=== PATIENT | male | born 1940 | race Caucasian/White ===

== ENCOUNTER 2017-02-05 19:04 | Inpatient (IN) | payer MEDICARE, MEDICAID ==
--- NOTE | 2017-02-05 19:48 | C.PDOC ---
History Of Present Illness Patient, with a past medical history of hypertension, presents to the ED complaining of dizziness that began 5 days ago. Patient states he felt better for a short time, but then symptoms became worse. Patient also notes unsteady walking. He denies fever, chills, chest pain, nausea, vomiting, or vision change. Time Seen by Provider: 02/05/17 19:46 Chief Complaint (Nursing): Dizziness/Lightheaded History Per: Patient History/Exam Limitations: no limitations Onset/Duration Of Symptoms: Days (5) Current Symptoms Are (Timing): Still Present Fall Associated With With Symptoms: No Severity: Mild Pain Scale Rating Of: 3 Recent travel outside of the [place]: No Additional History Per: Patient Past Medical History Reviewed: Historical Data, Nursing Documentation, Vital Signs Vital Signs: Last Vital Signs Temp 98.1 F 02/05/17 19:20 Pulse 71 02/05/17 19:20 Resp 16 02/05/17 19:20 BP 136/66 02/05/17 19:20 Pulse Ox 97 02/05/17 20:31 - Medical History PMH: HTN Family History: States: Unknown Family Hx - Social History Hx Alcohol Use: No Hx Substance Use: No - Immunization History Hx Influenza Vaccination: Yes Review Of Systems Constitutional: Negative for: Fever, Chills Eyes: Negative for: Vision Change Cardiovascular: Negative for: Chest Pain Respiratory: Negative for: Shortness of Breath Gastrointestinal: Negative for: Nausea, Vomiting Genitourinary: Negative for: Dysuria Musculoskeletal: Negative for: Back Pain Skin: Negative for: Rash, Lesions, Jaundice, Bruising Neurological: Positive for: Dizziness Psych: Negative for: Anxiety Physical Exam - Physical Exam Appears: Non-toxic, No Acute Distress Skin: Warm, Dry Head: Atraumatic, Normacephalic Eye(s): bilateral: Normal Inspection Oral Mucosa: Moist Neck: Supple Chest: Symmetrical Cardiovascular: Rhythm Regular Respiratory: No Rales, Rhonchi (scattered), No Wheezing Gastrointestinal/Abdominal: Soft, No Tenderness Back: No CVA Tenderness Extremity: Normal ROM Extremity: Bilateral: Atraumatic, Normal Color And Temperature Neurological/Psych: Oriented x3, Normal Speech, Normal Cognition, No Other ( Romberb, nystagmus) Gait: Steady ED Course And Treatment - Laboratory Results Result Diagrams: 02/05/17 20:06 02/05/17 20:06 ECG: Interpreted By Me, Viewed By Me ECG Rhythm: Sinus Rhythm (71), Nonspecific Changes O2 Sat by Pulse Oximetry: 97 Pulse Ox Interpretation: Normal - CT Scan/US Head CT Other Rad Studies (CT/US): Read By Radiologist (Kimberlee Melgar MD), Radiology Report Reviewed CT/US Interpretation: EXAM: CT Head Without Intravenous Contrast. CLINICAL HISTORY: 76 years old, male; Signs and symptoms; Dizziness; Additional info: R/ O bleed. TECHNIQUE: Axial computed tomography images of the head/brain without intravenous contrast. This CT exam. was performed using one or more of the following dose reduction techniques: automated exposure. control, adjustment of the mA and/or kV according to patient size, and/or use of iterative. reconstruction technique. EXAM DATE/TIME: Exam ordered 02/05/2017 7: 53 PM. COMPARISON: No relevant prior studies available. FINDINGS: Brain: Calcification is noted in the basal ganglia bilaterally. 2 subcentimeter focal low density areas. are noted within the left basal ganglia. One is located in the thalamus and one in the lentiform. nucleus. Both suggest lacunar infarcts. No hemorrhage. No significant white matter disease. No. edema. Ventricles: Unremarkable. No ventriculomegaly. Bones/joints: Unremarkable. No acute fracture. Soft tissues: Unremarkable. Sinuses: Mucosal thickening is noted in the left maxillary sinus and the left ethmoid air cells. Mastoid air cells: Unremarkable as visualized. No mastoid effusion. IMPRESSION: 1. No acute findings. 2. Chronic Lacunar infarcts in the left basal ganglia. 3. Mucosal thickening in the left maxillary sinus and left ethmoid air cells. Progress Note: Plan: Head CT, EKG, Labs, Chest x-ray Disposition Discussed With : Rupesh Ortega Comment: accepted the pt on his service and took over the care at 9:57PM Doctor Will See Patient In The: Hospital Counseled Patient/Family Regarding: Studies Performed, Diagnosis - Disposition Disposition: HOSPITALIZED Disposition Time: 19:47 Condition: FAIR - POA Present On Arrival: Poor Glycemic Control - Clinical Impression Clinical Impression: Dizziness, Hyperglycemia - Scribe Statement The provider has reviewed the documentation as recorded by the Haydee Ortega Provider Attestation: All medical record entries made by the Scribdami were at my direction and personally dictated by me. I have reviewed the chart and agree that the record accurately reflects my personal performance of the history, physical exam, medical decision making, and the department course for this patient. I have also personally directed, reviewed, and agree with the discharge instructions and disposition. Decision To Admit - Pt Status Changed To: Hospital Disposition Of: Inpatient - Admit Certification Admit to Inpatient:: After my assessment, the patient will require hospitalization for at least two midnights. This is because of the severity of symptoms shown, intensity of services needed, and/or the medical risk in this patient being treated as an outpatient. - InPatient: Physician Admission Certification: I certify that this patient requires 2 or more midnights of care for the following reason:: After my assessment, the patient will require hospitalization for at least two midnights. This is because of the severity of symptoms shown, intensity of services needed, and/or the medical risk in this patient being treated as an outpatient. - . Bed Request Type: Telemetry Admitting Physician: Rupesh Ortega Patient Diagnosis: Dizziness, Hyperglycemia
[2017-02-05 20:09] LABS: BASO % 0.4 % (0.0-2.0); EOS # 0.1 K/uL (0.0-0.7); EOS % 1.7 % (0.0-4.0); HEMATOCRIT 38.8 % (35.0-51.0); LYMPH # 2.9 K/uL (1.0-4.3); LYMPH % 46.3 % (20.0-40.0); MEAN CELL VOLUME 88.4 fL (80.0-94.0); MEAN CORPUSCULAR HEMOGLOBIN 29.2 pg (27.0-31.0); MEAN PLATELET VOLUME 6.7 fL (7.2-11.7); MONO # 0.8 K/uL (0.0-0.8); MONO % 13.1 % (0.0-10.0); RED CELL DISTRIBUTION WIDTH 12.8 % (11.5-14.5); WHITE BLOOD COUNT 6.2 K/uL (4.8-10.8)
[2017-02-05 20:20] LABS: CHLORIDE 99 mmol/L (98-107); POTASSIUM 4.7 mmol/L (3.6-5.2); SODIUM 140 mmol/L (132-148)
[2017-02-05 20:22] LABS: GFR AFRICAN-AMERICAN > 60; INR 1.1
[2017-02-05 20:23] LABS: ALB/GLOB RATIO 1.1 (1.0-2.1); ALKALINE PHOSPHATASE 75 U/L (38-126); ALT/SGPT 22 U/L (21-72); AST/SGOT 16 U/L (17-59); BILIRUBIN,TOTAL 0.3 mg/dL (0.2-1.3); BLOOD UREA NITROGEN 12 mg/dL (9-20); CARBON DIOXIDE 30 mmol/L (22-30); GLUCOSE,RANDOM 122 mg/dL (75-110); TOTAL PROTEIN 7.1 g/dL (6.3-8.3)
[2017-02-05 20:24] LABS: CALCIUM 8.6 mg/dl (8.6-10.4)
--- NOTE | 2017-02-05 20:28 | CT ---
EXAM: CT Head Without Intravenous Contrast CLINICAL HISTORY: 76 years old, male; Signs and symptoms; Dizziness; Additional info: R/O bleed TECHNIQUE: Axial computed tomography images of the head/brain without intravenous contrast. This CT exam was performed using one or more of the following dose reduction techniques: automated exposure control, adjustment of the mA and/or kV according to patient size, and/or use of iterative reconstruction technique. EXAM DATE/TIME: Exam ordered 02/05/2017 7:53 PM COMPARISON: No relevant prior studies available. FINDINGS: Brain: Calcification is noted in the basal ganglia bilaterally. 2 subcentimeter focal low density areas are noted within the left basal ganglia. One is located in the thalamus and one in the lentiform nucleus. Both suggest lacunar infarcts. No hemorrhage. No significant white matter disease. No edema. Ventricles: Unremarkable. No ventriculomegaly. Bones/joints: Unremarkable. No acute fracture. Soft tissues: Unremarkable. Sinuses: Mucosal thickening is noted in the left maxillary sinus and the left ethmoid air cells. Mastoid air cells: Unremarkable as visualized. No mastoid effusion. IMPRESSION: 1. No acute findings. 2. Chronic Lacunar infarcts in the left basal ganglia 3. Mucosal thickening in the left maxillary sinus and left ethmoid air cells.
[2017-02-05 20:37] LABS: URINE BILIRUBIN NEGATIVE (NEGATIVE); URINE BLOOD NEGATIVE (NEGATIVE); URINE COLOR Straw (YELLOW); URINE GLUCOSE (UA) NORMAL (Normal); URINE KETONE NEGATIVE (NEGATIVE); URINE LEUKOCYTE ESTERASE NEG Leu/uL (Negative); URINE PROTEIN NEGATIVE (NEGATIVE); URINE UROBILINOGEN NORMAL mg/dL (0.2-1.0); WBC URINE < 1 /hpf (0-5)
--- NOTE | 2017-02-06 09:29 | RAD ---
PROCEDURE: CHEST RADIOGRAPH, 1 VIEW HISTORY: Shortness of breath COMPARISON: None available. FINDINGS: LUNGS: Mild to moderate venous congestion. PLEURA: No pneumothorax or pleural fluid seen. CARDIOVASCULAR: Normal. OSSEOUS STRUCTURES: No significant abnormalities. VISUALIZED UPPER ABDOMEN: Normal. OTHER FINDINGS: None. IMPRESSION: Mild to moderate venous congestion.
[2017-02-06] MEDS: Enoxaparin 40 mg Syringe SC SCH (09:54)
[2017-02-06] MEDS: Pantoprazole 40 mg EC Tab PO SCH (09:54)
--- NOTE | 2017-02-06 13:59 | MRI ---
PROCEDURE: MRI BRAIN WITHOUT CONTRAST HISTORY: dizziness COMPARISON: None. TECHNIQUE: Multiplanar, multisequence MR images of the brain were obtained without intravenous contrast enhancement. FINDINGS: HEMORRHAGE: None DWI: No evidence of an acute or early subacute infarction. BRAIN PARENCHYMA: No mass effect or edema. No atrophy or chronic microvascular ischemic changes. Roughly 1 centimeter perivascular space in the left basal ganglia. Mild atrophy. VENTRICLES: Unremarkable. No hydrocephalus. CRANIUM: Unremarkable. ORBITS: Grossly unremarkable. PARANASAL SINUSES/MASTOIDS: Clear VASCULAR SYSTEM: Skull base flow voids intact. OTHER FINDINGS: None. IMPRESSION: Mild atrophy.
--- NOTE | 2017-02-06 14:41 | CP.PCM.PN ---
Subjective - Date & Time of Evaluation Date of Evaluation: 02/06/17 Time of Evaluation: 14:20 - Subjective Subjective: PGY2 Medicine Note - Dr. Palma Ortega's service: Patient seen and examined at bedside this AM. Patient reports 5 days of dizziness and gait instability. Patient denies fever, chills, chest pain, SOB. Objective - Vital Signs/Intake and Output Vital Signs (last 24 hours): Temp Pulse Resp BP Pulse Ox 98.4 F 68 18 116/66 96 02/06/17 07:00 02/06/17 07:08 02/06/17 07:00 02/06/17 07:00 02/06/17 07:00 - Medications Medications: Current Medications Amlodipine Besylate (Norvasc) 5 mg PO DAILY [facility] Last Admin: 02/06/17 09:54 Dose: 5 mg Aspirin (Ecotrin) 81 mg PO DAILY [facility] Enoxaparin Sodium (Lovenox) 40 mg SC DAILY [facility] Last Admin: 02/06/17 09:54 Dose: 40 mg Meclizine HCl (Antivert) 25 mg PO Q8 [facility] Last Admin: 02/06/17 13:41 Dose: 25 mg Pantoprazole Sodium (Protonix Ec Tab) 40 mg PO DAILY [facility] Last Admin: 02/06/17 09:54 Dose: 40 mg - Labs Labs: PT 11.8 SECONDS (9.7-12.2) 02/05/17 20:06 INR 1.1 02/05/17 20:06 APTT 28 SECONDS (21-34) 02/05/17 20:06 - Constitutional Appears: Non-toxic, No Acute Distress - Head Exam Head Exam: NORMAL INSPECTION - Eye Exam Eye Exam: EOMI - ENT Exam ENT Exam: Mucous Membranes Moist - Respiratory Exam Respiratory Exam: Clear to Ausculation Bilateral, NORMAL BREATHING PATTERN. absent: Rales, Rhonchi, Wheezes - Cardiovascular Exam Cardiovascular Exam: REGULAR RHYTHM, +S1, +S2. absent: Gallop, Rubs - GI/Abdominal Exam GI & Abdominal Exam: Soft, Normal Bowel Sounds - Neurological Exam Neurological Exam: Alert, Awake - Psychiatric Exam Psychiatric exam: Normal Affect, Normal Mood - Skin Skin Exam: Normal Color, Warm Assessment and Plan - Assessment and Plan (Free Text) Assessment: Dizziness Head CT - No acute findings; chronic lacunar infarcts in left basal ganglia; mucosal thickening in left maxillary sinus and left ethmoid air cells Brain MRI - mild atrophy EKG - NSR at 71 bpm F/U ECHO and carotid US reports F/U vitamin D, B12, folate, RPR Meclizine 25mg PO Q8 ASA 81mg PO daily Neurology consult - Dr. Trini Hermosillo - f/u recs HTN Norvasc 5mg PO daily Prophylaxis Protonix 40mg PO daily Lovenox 40mg SC daily Management per Dr. Palma Ortega
--- NOTE | 2017-02-06 15:25 | VASCLAB ---
PROCEDURE: HISTORY: dizziness COMPARISON: None available. TECHNIQUE: Grayscale and duplex Doppler evaluation of the cervical carotid and vertebral arteries were performed. The common carotid, carotid bifurcations and cervical Internal Carotid Artery (ICA) and proximal External Carotid Artery (ECA) were evaluated. The vertebral arteries were evaluated for gross patency and flow direction. Report prepared by Sunny Cordon, BS, RVT FINDINGS: RIGHT CAROTID ARTERIES: 1. Common Carotid Artery: No significant focal plaque formation of the right common carotid artery. Maximum Peak Systolic velocity: 120 cm/sec: End-diastolic velocity 19 cm/sec. 2. Carotid Bifurcation: plaque formation. Maximum Peak Systolic velocity: 90 cm/sec: End-diastolic velocity 24 cm/sec. 3. Internal Carotid Artery: Plaque description: 3.1. Proximal Segment: Peak systolic velocity 99 cm/sec: End-diastolic velocity 30 cm/sec - % stenosis 0-15% 3.2. Middle Segment: Peak systolic velocity 117 cm/sec: End-diastolic velocity 28 cm/sec - % stenosis 0-15% 3.3. Distal Segment: Peak systolic velocity 90 cm/sec: End-diastolic velocity 24 cm/sec - % stenosis 0-15% 4. External Carotid Artery: No significant focal plaque formation. Peak systolic velocity 111 cm/sec 5. ICA/CCA Ratio: 1.0 LEFT CAROTID ARTERIES: 1. Common Carotid Artery: No significant focal plaque formation of the left common carotid artery. Maximum Peak Systolic velocity: 117 cm/sec: End-diastolic velocity 17 cm/sec. 2. Carotid Bifurcation: plaque formation. Maximum Peak Systolic velocity: 112 cm/sec: End-diastolic velocity 20 cm/sec. 3. Internal Carotid Artery: Plaque description: 3.1. Proximal Segment: Peak systolic velocity 95 cm/sec: End-diastolic velocity 27 cm/sec - % stenosis 0-15% 3.2. Middle Segment: Peak systolic velocity 49 cm/sec: End-diastolic velocity 13 cm/sec - % stenosis 0-15% 3.3. Distal Segment: Peak systolic velocity 117 cm/sec: End-diastolic velocity 32 cm/sec - % stenosis 0-15% 4. External Carotid Artery: No significant focal plaque formation. Peak systolic velocity 109 cm/sec 5. ICA/CCA Ratio: 1.0 VERTEBRAL ARTERIES: 1. Right Vertebral Artery: The right vertebral artery flow direction is antegrade. 2. Left Vertebral Artery: The left vertebral artery flow direction is antegrade. OTHER FINDINGS: 1. Right Brachial Blood pressure: 128 mmHg. 2. Left Brachial Blood pressure: 124 mmHg. IMPRESSION: RIGHT: Duplex scan does not suggest hemodynamically significant stenosis of the right extracranial carotid arteries. LEFT: Duplex scan does not suggest hemodynamically significant stenosis of the left extracranial carotid arteries.
[2017-02-06 15:51] VITALS: RESP 20
--- NOTE | 2017-02-06 18:31 | CP.PCM.HP ---
Past Patient History - Past Medical History & Family History Past Medical History?: Yes - Past Social History Smoking Status: Never Smoked - CARDIAC Hx Cardiac Disorders: Yes Hx Hypertension: Yes - PULMONARY Hx Respiratory Disorders: No - NEUROLOGICAL Hx Neurological Disorder: No - HEENT Hx HEENT Problems: No - RENAL Hx Chronic Kidney Disease: No - ENDOCRINE/METABOLIC Hx Diabetes Mellitus Type 1: Yes - HEMATOLOGICAL/ONCOLOGICAL Hx Blood Disorders: No - INTEGUMENTARY Hx Dermatological Problems: No - MUSCULOSKELETAL/RHEUMATOLOGICAL Hx Falls: No - GASTROINTESTINAL Hx Gastrointestinal Disorders: No - GENITOURINARY/GYNECOLOGICAL Hx Genitourinary Disorders: No - PSYCHIATRIC Hx Substance Use: No - SURGICAL HISTORY Hx Surgeries: No Other/Comment: denies any further history - ANESTHESIA Hx Anesthesia: No Hx Anesthesia Reactions: No Hx Malignant Hyperthermia: No Has any member of the family had a problem w/ anesthesia?: No Meds Allergies/Adverse Reactions: Allergies Allergy/AdvReac Type Severity Reaction Status Date / Time No Known Allergies Allergy Verified 02/05/17 19:26 Results - Vital Signs Recent Vital Signs: Last Vital Signs Temp 98.3 F 02/06/17 15:00 Pulse 72 02/06/17 16:38 Resp 20 02/06/17 15:00 BP 122/70 02/06/17 15:00 Pulse Ox 96 02/06/17 16:38 - Labs Result Diagrams: 02/05/17 20:06 02/05/17 20:06 Labs: Laboratory Results - last 24 hr 02/06/17 02/06/17 02/06/17 06:11 14:12 14:12 POC Glucose (mg/dL) 119 H Vitamin B12 400 25-OH Vitamin D Total < 12.8 L RPR 02/06/17 02/06/17 14:12 16:16 POC Glucose (mg/dL) 120 H Vitamin B12 25-OH Vitamin D Total RPR Nonreactive
--- NOTE | 2017-02-06 20:08 | CP.PCM.CON ---
History of Present Illness - History of Present Illness History of Present Illness: Mr. Tolliver is a 76-year-old man with a past medical history of hypertension, who states that he has been feeling "dizzy" for the past week. He states that the dizziness feels like the ground is moving for him and he also has trouble with ambulating during the dizzy periods. He currently is not feeling these symptoms and had no complaints when I examined him. Review of Systems - Review of Systems All systems: reviewed and no additional remarkable complaints except Past Patient History - Past Medical History & Family History Past Medical History?: Yes - Past Social History Smoking Status: Never Smoked - CARDIAC Hx Cardiac Disorders: Yes Hx Hypertension: Yes - PULMONARY Hx Respiratory Disorders: No - NEUROLOGICAL Hx Neurological Disorder: No - HEENT Hx HEENT Problems: No - RENAL Hx Chronic Kidney Disease: No - ENDOCRINE/METABOLIC Hx Diabetes Mellitus Type 1: Yes - HEMATOLOGICAL/ONCOLOGICAL Hx Blood Disorders: No - INTEGUMENTARY Hx Dermatological Problems: No - MUSCULOSKELETAL/RHEUMATOLOGICAL Hx Falls: No - GASTROINTESTINAL Hx Gastrointestinal Disorders: No - GENITOURINARY/GYNECOLOGICAL Hx Genitourinary Disorders: No - PSYCHIATRIC Hx Substance Use: No - SURGICAL HISTORY Hx Surgeries: No Other/Comment: denies any further history - ANESTHESIA Hx Anesthesia: No Hx Anesthesia Reactions: No Hx Malignant Hyperthermia: No Has any member of the family had a problem w/ anesthesia?: No Meds Allergies/Adverse Reactions: Allergies Allergy/AdvReac Type Severity Reaction Status Date / Time No Known Allergies Allergy Verified 02/05/17 19:26 - Medications Medications: Current Medications Amlodipine Besylate (Norvasc) 5 mg PO DAILY [facility] Last Admin: 02/06/17 09:54 Dose: 5 mg Aspirin (Ecotrin) 81 mg PO DAILY [facility] Last Admin: 02/06/17 14:57 Dose: 81 mg Enoxaparin Sodium (Lovenox) 40 mg SC DAILY [facility] Last Admin: 02/06/17 09:54 Dose: 40 mg Meclizine HCl (Antivert) 25 mg PO Q8 [facility] Last Admin: 02/06/17 13:41 Dose: 25 mg Pantoprazole Sodium (Protonix Ec Tab) 40 mg PO DAILY [facility] Last Admin: 02/06/17 09:54 Dose: 40 mg Physical Exam - Constitutional Appears: Well - Head Exam Head Exam: ATRAUMATIC, NORMAL INSPECTION, NORMOCEPHALIC - Eye Exam Eye Exam: EOMI, Normal appearance, PERRL - ENT Exam ENT Exam: Mucous Membranes Moist, Normal Exam - Neck Exam Neck exam: Positive for: Normal Inspection - Respiratory Exam Respiratory Exam: Clear to Auscultation Bilateral, NORMAL BREATHING PATTERN - Cardiovascular Exam Cardiovascular Exam: REGULAR RHYTHM, +S1, +S2 - GI/Abdominal Exam GI & Abdominal Exam: Normal Bowel Sounds, Soft. absent: Tenderness - Rectal Exam Rectal Exam: Deferred - Neurological Exam Neurological exam: Alert, CN II-XII Intact, Normal Gait, Oriented x3, Reflexes Normal Additional comments: gait was wide-based and slow. Romberg was negative. - Expanded Neurological Exam Expanded Patient oriented to: person, place, time Cranial nerves: EOM's Intact: Normal, Facial Sensation: Normal, Gag Reflex: Normal, Nystagmus: Normal Cerebellar Function: Finger to Nose: Normal, Heel to [place]: Normal, Romberg: Normal Upper motor neuron: Babinski Sign: Normal Sensory exam: Lower Extremity Light Touch: Normal, Lower Extremity Pin Prick: Normal, Upper Extremity Light Touch: Normal, Upper Extremity Pin Prick: Normal Neuro motor strength exam: Left Upper Extremity: 5, Right Upper Extremity: 5, Left Lower Extremity: 5, Right Lower Extremity: 5 DTR: Achilles Tendon Left: 2+, Achilles Tendon Right: 2+, Bicep Left: 2+, Bicep Right: 2+, Brachioradialis Left: 2+, Brachioradialis Right: 2+, Patellar Left: 2 +, Patellar Right: 2+, Tricep Left: 2+, Tricep Right: 2+ - Psychiatric Exam Psychiatric exam: Normal Affect, Normal Mood - Skin Skin Exam: Dry, Intact, Normal Color, Warm Results - Vital Signs Recent Vital Signs: Last Vital Signs Temp 98.3 F 02/06/17 15:00 Pulse 72 02/06/17 16:38 Resp 20 02/06/17 15:00 BP 122/70 02/06/17 15:00 Pulse Ox 96 02/06/17 16:38 - Labs Result Diagrams: 02/05/17 20:06 02/05/17 20:06 Labs: Laboratory Results - last 24 hr 02/06/17 02/06/17 02/06/17 06:11 14:12 14:12 POC Glucose (mg/dL) 119 H Vitamin B12 400 25-OH Vitamin D Total < 12.8 L RPR 02/06/17 02/06/17 14:12 16:16 POC Glucose (mg/dL) 120 H Vitamin B12 25-OH Vitamin D Total RPR Nonreactive - Imaging and Cardiology CT scan - head Status: Image reviewed by me, Report reviewed by me (CT head, MRI brain did not demonstrate any acute findings. ) Assessment & Plan (1) Dizziness Assessment and Plan: The patient's intermittent vertigo-like symptoms with gait instability may represent a posterior circulation stenosis that could be intracranial and therefor not evaluated by the carotid doppler. I recommend obtaining a CTA of the head/neck, continue aspirin and antivert. Continue adequate hydration with NS at 100 mL/hr to maintain cerebral perfusion. DVT Px, PT/OT if needed. Status: Acute Priority: Medium
[2017-02-06] MEDS ORDERED: Iohexol 350mg/ml 100 ML ONE (21:02)
[2017-02-06] MEDS: Sodium Chloride 0.9% 1,000 ML IV SCH (21:11)
[2017-02-07] MEDS ORDERED: Ergocalciferol 50,000 Intl Units Cap PO SCH (06:30)
[2017-02-07 07:40] LABS: BASO # 0.1 K/uL (0.0-0.2); BASO % 0.7 % (0.0-2.0); EOS # 0.1 K/uL (0.0-0.7); EOS % 1.4 % (0.0-4.0); HEMATOCRIT 37.1 % (35.0-51.0); LYMPH # 2.8 K/uL (1.0-4.3); LYMPH % 40.2 % (20.0-40.0); MEAN CELL VOLUME 87.7 fL (80.0-94.0); MEAN CORPUSCULAR HEMOGLOBIN 29.5 pg (27.0-31.0); MEAN CORPUSCULAR HGB CONC 33.6 g/dL (33.0-37.0); MONO # 0.6 K/uL (0.0-0.8); MONO % 8.1 % (0.0-10.0); NRBC % 0.1 % (0.0-2.0); RED CELL DISTRIBUTION WIDTH 12.9 % (11.5-14.5); WHITE BLOOD COUNT 7.1 K/uL (4.8-10.8)
[2017-02-07 07:56] LABS: CHLORIDE 101 mmol/L (98-107); POTASSIUM 4.2 mmol/L (3.6-5.2); SODIUM 137 mmol/L (132-148)
[2017-02-07 07:58] LABS: GFR AFRICAN-AMERICAN > 60
[2017-02-07 07:59] LABS: ALB/GLOB RATIO 0.9 (1.0-2.1); ALKALINE PHOSPHATASE 78 U/L (38-126); ALT/SGPT 18 U/L (21-72); AST/SGOT 16 U/L (17-59); BILIRUBIN,TOTAL 0.4 mg/dL (0.2-1.3); BLOOD UREA NITROGEN 11 mg/dL (9-20); CARBON DIOXIDE 28 mmol/L (22-30); GLUCOSE,RANDOM 110 mg/dL (75-110); TOTAL PROTEIN 6.1 g/dL (6.3-8.3)
[2017-02-07 08:00] LABS: CALCIUM 7.7 mg/dl (8.6-10.4)
[2017-02-07] MEDS: Sodium Chloride 0.9% 1,000 ML IV SCH (08:00)
--- NOTE | 2017-02-07 09:58 | CT ---
PROCEDURE: CT Angiography of the neck and brain dated 02/06/2017. HISTORY: Vertigo COMPARISON: Correlation made with carotid Doppler exam 02/06/2017. TECHNIQUE: Contiguous helical/transaxial images of the neck were obtained from the level of the skull-base to the superior mediastinum in the arteriographic phase of enhancement. Coronal and sagittal reformats or also generated. IV contrast dose: 100 cc Omnipaque 350 contrast material. Radiation Dose - DLP: 621.6 mGy-cm FINDINGS: Findings: The visualized common carotid arteries, carotid bifurcations and internal carotid arteries are widely patent without evidence of occlusion or nor significant stenosis. No significant atherosclerotic plaque changes are identified the distal internal carotid arteries including the PE trace common carotid cavernous and supraclinoid segments also widely patent. Some very minimal calcified atherosclerotic plaque seen along both carotid siphons however no significant stenosis. The visualized vertebral arteries are relatively symmetric on in caliber. Basilar artery is patent. The major branches of the [place] and mid to proximal and mid the portions of the middle and posterior cerebral arteries are patent appear relatively symmetric. No evidence of large on aneurysm nor vascular malformation so far as can be seen. Mild chronic periventricular white matter ischemic changes. Mild polypoid like mucosal thickening both maxillary antra. Minor mucosal thickening within not several ethmoid air. Impression: The carotid and vertebral arteries are widely patent without evidence of occlusion or hemodynamically significant stenosis. .
[2017-02-07] MEDS: Enoxaparin 40 mg Syringe SC SCH (10:35)
[2017-02-07] MEDS: Pantoprazole 40 mg EC Tab PO SCH (10:35)
--- NOTE | 2017-02-07 12:14 | CARD ---
APPROVED REPORT EKG Measurement Heart [id number] VT [id number] <Conclusion> Normal sinus rhythm Normal ECG
--- NOTE | 2017-02-07 12:32 | CARD ---
APPROVED REPORT EXAM: Two-dimensional and M-mode echocardiogram with Doppler and color Doppler. Other Information Quality : GoodRhythm : NSR INDICATION Dizziness and Vertigo AMBULATORY DYSFUNCTION RISK FACTORS Hypertension M-Mode DIMENSIONS RVDd2.05 (2.1-3.2cm)Left Atrium (MM)3.51 (2.5-4.0cm) IVSd0.94 (0.7-1.1cm)Aortic Root3.16 (2.2-3.7cm) LVDd4.46 (4.0-5.6cm)Aortic Cusp Exc.1.92 (1.5-2.0cm) PWd0.91 (0.7-1.1cm)FS (%) 44 % LVDs2.51 (2.0-3.8cm)LVEF (%)75 (>50%) Mitral Valve MV E Akyjkmsg06.6cm/sMV A Lzqswshi33.0cm/sE/A ratio1.0 TDI E/Lateral E'0.0E/Medial E'0.0 Tricuspid Valve TR Peak [id number]/sTR Peak Gr.[id number] <Conclusion> normal size la,lv & ra rv. normal lv wall motion,thickness,systolic & diastolic function with lvef of more than 70%. normal aortic,mitral,tv & pv for age. mild tr with normal pulmonary systolic pressures of 32 mm of hg. no pericardial effusion. sclerotic normal size aortic root.
--- NOTE | 2017-02-07 13:13 | CP.PCM.PN ---
Subjective - Date & Time of Evaluation Date of Evaluation: 02/07/17 Time of Evaluation: 07:55 - Subjective Subjective: PGY2 Medicine Note - Dr. Palma Ortega's service: Patient seen and examined at bedside this AM. Patient denies dizziness while in bed. Patient says he has trouble walking and dizziness when standing up. Patient denies fever, chills, chest pain, congestion, SOB, abdominal pain, dysuria. Objective - Vital Signs/Intake and Output Vital Signs (last 24 hours): Temp Pulse Resp BP Pulse Ox 98.1 F 62 20 120/68 95 02/07/17 07:25 02/07/17 12:00 02/07/17 07:25 02/07/17 10:34 02/07/17 07:25 Intake and Output: 02/07/17 02/07/17 06:59 18:59 Intake Total 920 Output Total 525 Balance 395 - Medications Medications: Current Medications Amlodipine Besylate (Norvasc) 5 mg PO DAILY [facility] Last Admin: 02/07/17 10:35 Dose: 5 mg Aspirin (Ecotrin) 81 mg PO DAILY [facility] Last Admin: 02/07/17 10:35 Dose: 81 mg Cyanocobalamin (Vitamin B12 1000 Mcg Tab) 1,000 mcg PO DAILY [facility] Last Admin: 02/07/17 10:35 Dose: 1,000 mcg Enoxaparin Sodium (Lovenox) 40 mg SC DAILY [facility] Last Admin: 02/07/17 10:35 Dose: 40 mg Ergocalciferol (Drisdol 50,000 Intl Units Cap) 1 cap PO Q7D [facility] Last Admin: 02/07/17 07:09 Dose: 1 cap Sodium Chloride (Sodium Chloride 0.9%) 1,000 mls @ 100 mls/hr IV .Q10H [facility] Last Admin: 02/07/17 08:00 Dose: 100 mls/hr Meclizine HCl (Antivert) 25 mg PO Q8 [facility] Last Admin: 02/07/17 05:42 Dose: 25 mg Pantoprazole Sodium (Protonix Ec Tab) 40 mg PO DAILY [facility] Last Admin: 02/07/17 10:35 Dose: 40 mg - Labs Labs: 02/07/17 07:22 02/07/17 07:22 PT 11.8 SECONDS (9.7-12.2) 02/05/17 20:06 INR 1.1 02/05/17 20:06 APTT 28 SECONDS (21-34) 02/05/17 20:06 - Constitutional Appears: Non-toxic, No Acute Distress - Head Exam Head Exam: NORMAL INSPECTION - Eye Exam Eye Exam: EOMI - ENT Exam ENT Exam: Mucous Membranes Moist - Respiratory Exam Respiratory Exam: Clear to Ausculation Bilateral, NORMAL BREATHING PATTERN. absent: Rales, Rhonchi, Wheezes - Cardiovascular Exam Cardiovascular Exam: REGULAR RHYTHM, +S1, +S2. absent: Gallop, Rubs - GI/Abdominal Exam GI & Abdominal Exam: Soft, Normal Bowel Sounds. 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 otherwise normal. (please see full report) RPR negative Vitamin B12 400 Vitamin D <12.5 B12 1000mcg IM once B12 1000mcg PO daily Ergocalciferol 33938H PO Q7D x 6 months Meclizine 25mg PO Q8 ASA 81mg PO daily Neurology consult - Dr. Leon - help appreciated HTN Norvasc 5mg PO daily Prophylaxis Protonix 40mg PO daily Lovenox 40mg SC daily Management per Dr. Palma Ortega
[2017-02-07 15:53] VITALS: BP 133/69; TEMP 97.6; O2SAT 98
[2017-02-07 16:23] VITALS: PULSE 69
--- NOTE | 2017-02-07 17:08 | CP.PCM.PN ---
Subjective - Date & Time of Evaluation Date of Evaluation: 02/07/17 Time of Evaluation: 11:40 - Subjective Subjective: clinically same Objective - Vital Signs/Intake and Output Vital Signs (last 24 hours): Temp Pulse Resp BP Pulse Ox 97.6 F 69 20 133/69 98 02/07/17 15:20 02/07/17 15:30 02/07/17 15:20 02/07/17 15:20 02/07/17 15:20 Intake and Output: 02/07/17 02/07/17 06:59 18:59 Intake Total 920 1200 Output Total 525 Balance 395 1200 - Medications Medications: Current Medications Amlodipine Besylate (Norvasc) 5 mg PO DAILY [facility] Last Admin: 02/07/17 10:35 Dose: 5 mg Aspirin (Ecotrin) 81 mg PO DAILY [facility] Last Admin: 02/07/17 10:35 Dose: 81 mg Cyanocobalamin (Vitamin B12 1000 Mcg Tab) 1,000 mcg PO DAILY [facility] Last Admin: 02/07/17 10:35 Dose: 1,000 mcg Enoxaparin Sodium (Lovenox) 40 mg SC DAILY [facility] Last Admin: 02/07/17 10:35 Dose: 40 mg Ergocalciferol (Drisdol 50,000 Intl Units Cap) 1 cap PO Q7D [facility] Last Admin: 02/07/17 07:09 Dose: 1 cap Sodium Chloride (Sodium Chloride 0.9%) 1,000 mls @ 100 mls/hr IV .Q10H [facility] Last Admin: 02/07/17 08:00 Dose: 100 mls/hr Meclizine HCl (Antivert) 25 mg PO Q8 [facility] Last Admin: 02/07/17 13:22 Dose: 25 mg Pantoprazole Sodium (Protonix Ec Tab) 40 mg PO DAILY [facility] Last Admin: 02/07/17 10:35 Dose: 40 mg - Labs Labs: 02/07/17 07:22 02/07/17 07:22 PT 11.8 SECONDS (9.7-12.2) 02/05/17 20:06 INR 1.1 02/05/17 20:06 APTT 28 SECONDS (21-34) 02/05/17 20:06 - Constitutional Appears: Well - Head Exam Head Exam: ATRAUMATIC, NORMAL INSPECTION, NORMOCEPHALIC - Eye Exam Eye Exam: EOMI, Normal appearance, PERRL Pupil Exam: NORMAL ACCOMODATION, PERRL - ENT Exam ENT Exam: Mucous Membranes Moist, Normal Exam - Neck Exam Neck Exam: Full ROM, Normal Inspection. absent: Lymphadenopathy - Respiratory Exam Respiratory Exam: Decreased Breath Sounds - Cardiovascular Exam Cardiovascular Exam: REGULAR RHYTHM, +S1, +S2 - GI/Abdominal Exam GI & Abdominal Exam: Soft, Diminished Bowel Sounds - Rectal Exam Rectal Exam: Deferred
== END 2017-02-07 17:58 | disposition home or self-care (01) | DRG 149 ==
LOC: C.ER 19:04 → C.6T 22:02
PROVIDERS: ADMIT Internal Medicine Nephrology; ATTEND Internal Medicine Nephrology
DX: R42 Dizziness and giddiness (principal); E11.9 Type 2 diabetes mellitus without complications; I10 Essential (primary) hypertension; R26.81 Unsteadiness on feet